=== PATIENT | male | born 1990 | race Two or more races ===

== ENCOUNTER 2021-11-03 04:07 | Emergency (ER) | payer OTHER ==
[~2021-11-03] VITALS: Ht 170.2 cm; Wt 79.4 kg
--- NOTE | 2021-11-03 06:49 | NUR ---
FAHEEM SPLINT TO LEFT RING FINGER. PATIENT BEC NEIL [id number] AND SECURITY WAS CALLED. PT LEFT AFTER SIGNING D/C PAPERWORK AFTER READING CONTENT. ESCORTED OUT BY SECURITY.
[2021-11-03 06:56] VITALS: BP 142/80
== END 2021-11-03 06:57 | disposition home or self-care (01) ==
LOC: ER 04:49
DX: S69.92XA Unspecified injury of left wrist, hand and finger(s), initial encounter (principal); Y04.0XXA Assault by unarmed brawl or fight, initial encounter; Y92.511 Restaurant or cafe as the place of occurrence of the external cause; R51.9 Headache, unspecified
CPT/HCPCS: 73140; A4663